=== PATIENT | female | born 1950 | race Caucasian/White ===

== ENCOUNTER 2017-01-08 18:07 | Emergency (ER) | payer OTHER ==
[~2017-01-08] VITALS: Ht 160 cm; Wt 90.0 kg
[~2017-01-08 18:07] MED LIST: CYCL-36 PO; DICL75 PO; EFFE75CA PO; ENAL2.5 PO; HYDR2TAB PO; LOVA40TA PO; NORC10TA2 PO; PROT40TA PO
[2017-01-08 18:09] VITALS: BP 136/93; PULSE 98; RESP 18; TEMP 98.2; O2SAT 100
[2017-01-08] MEDS ORDERED: SODIUM CHLORIDE 0.9% FLUSH 10 ML FLUSH IVF PRN (19:30)
[2017-01-08] MEDS ORDERED: oxyCODONE/ACETAMINOPHEN 7.5 MG/325 MG TAB PO ONE (19:30)
--- NOTE | 2017-01-08 20:33 | RADRPT ---
EXAM DATE/TIME: 01/08/2017 19:44 [place] COMPARISON: No previous studies available for comparison. INDICATIONS : Pain without trauma. MEDICAL HISTORY : Osteoporosis. SURGICAL HISTORY : None. ENCOUNTER: Initial ACUITY: 1 day PAIN SCORE: 5/10 LOCATION: Left hip. FINDINGS: Examination of the left hip was performed with AP Pelvis. The primary and secondary trabecular patte rn of the femoral neck is intact. The hip joint is of normal width without significant sclerosis or bony hypertrophy. The acetabulum is grossly intact. CONCLUSION: Normal examination for a patient of this age. Oliverio Walls MD on January 08, 2017 at 20:30 Board Certified Radiologist. This report was verified electronically.
[2017-01-08] MEDS ORDERED: PERC7.5T13 PO (21:18)
--- NOTE | 2017-01-08 21:18 | PD ---
HPI Chief Complaint: Hip Injury Time Seen by Provider: 19:22 Travel History International Travel<30 days: No Contact w/Intl Traveler<30days: No Traveled to known affect area: No History of Present Illness HPI Pt is 67 and while ambulating this morning felt a sudden onset of pain in the region of the left hip with involvement of the L lumbasacral area and medial proximal thigh. no falls. ambulation severely painful for patient. pt reports hx osteoporosis and is worried about a fracture. she took lortab at home which helped only marginally. timing constant. onset sudden. pain is worse lying on affected side. PFSH Past Medical History Arthritis: Yes Asthma: No Blood Disorders: No Anxiety: No Depression: Yes (on rx) Heart Rhythm Problems: Yes (mvp) Cancer: No Cardiovascular Problems: No High Cholesterol: Yes Chemotherapy: No Chest Pain: No Congestive Heart Failure: No COPD: Yes Diabetes: No Endocrine: No GERD: Yes Genitourinary: No Immune Disorder: No Musculoskeletal: No Neurologic: No Reproductive: No Respiratory: Yes Radiation Therapy: No Sleep Apnea: No Thyroid Disease: No ?: Not Past Surgical History Appendectomy: Yes Cholecystectomy: Yes Hysterectomy: Yes Tonsillectomy: Yes Social History Alcohol Use: Yes (rare) Tobacco Use: No Substance Use: No Allergies-Medications (Allergen,Severity, Reaction): Coded Allergies: No Known Allergies (Verified , 11/30/15) Reported Meds & Prescriptions Reported Meds & Active Scripts Active Percocet (Oxycodone-Acetaminophen) 7.5-325 mg Tab 1 Tab PO HS PRN [place]rum [place] 10-325 mg (Hydrocodone-Acetaminophen 10-325 mg) 1 Tab 1 Tab PO Q8HR PRN Flexeril (Cyclobenzaprine HCl) 10 Mg Tab 5 Mg PO BID PRN Reported Hydromorphone Hcl (Hydromorphone HCl) 2 Mg Tab 2 Mg PO Q4H PRN Lovastatin 40 Mg Tab 80 Mg PO HS Protonix (Pantoprazole Sodium) 40 Mg Tabdr 40 Mg PO DAILY Enalapril Maleate 2.5 Mg Tab 2.5 Mg PO DAILY Effexor Xr (Venlafaxine HCl) 75 Mg Cap 75 Mg PO DAILY Diclofenac Sodium Dr (Diclofenac Sod) 75 Mg Tab 75 Mg PO BID Review of Systems General / Constitutional: No: Fever Eyes: No: Visual changes HENT: No: Headaches Cardiovascular: No: Chest Pain or Discomfort Respiratory: No: Shortness of Breath Neurologic: No: Weakness Physical Exam Narrative GENERAL: 67 yo F, pleasant mild distress 2/2 pain SKIN: Warm and dry. HEAD: Normocephalic. EYES: No scleral icterus. No injection or drainage. NECK: Supple, trachea midline. No JVD or lymphadenopathy. CARDIOVASCULAR: Regular rate and rhythm without murmurs, gallops, or rubs. RESPIRATORY: Breath sounds equal bilaterally. No accessory muscle use. GASTROINTESTINAL: Abdomen soft, non-tender, nondistended. MUSCULOSKELETAL: No cyanosis, or edema. minimal ttp overlying greater trochanter on the left side. no tenderness with axial load. pt is able to elevate the left and right leg off the bed. 2+ dp bilaterally. BACK: Nontender without obvious deformity. No CVA tenderness. Data Data Last Documented VS Vital Signs Date Time Temp Pulse Resp B/P (MAP) Pulse Ox O2 Delivery O2 Flow Rate FiO2 01/08/17 21:32 01/08/17 18:09 98.2 98 18 100 Vital Signs Date Time Temp Pulse Resp B/P (MAP) Pulse Ox O2 Delivery O2 Flow Rate FiO2 01/08/17 21:32 01/08/17 18:09 98.2 98 18 136/93 (107) 100 Orders Orders Hip, Uni(Ap&Lat) W Ap Pelvis (01/08/17 19:27) Sodium Chloride 0.9% Flush (Ns Flush) (01/08/17 19:30) Oxycodone-Acetamin 7.5-325 Mg (Percocet (01/08/17 19:30) Ed Discharge Order (01/08/17 21:18) MDM Medical Decision Making Medical Screen Exam Complete: Yes Emergency Medical Condition: Yes Differential Diagnosis trochanteric fracture pubic ramus fracture contusion arthritis Narrative Course no fracture on plain films. mineralization is good and i have low suspicion for occult injury. results discussed with patient who was very relieved to hear there was no fracture pt ready for discharge home Diagnosis Primary Impression: Acute hip pain Qualified Codes: M25.552 - Pain in left hip Referrals: Latrice Padgett MD call for appointment Med/Other Pt SpecificInfo: Prescription(s) given Scripts Oxycodone-Acetaminophen (Percocet) 7.5-325 mg Tab 1 TAB PO HS Y for PAIN SCALE 6 TO 10, #20 TAB 0 Refills Prov: Sorin Hendrickson MD 01/08/17 Disposition: 01 DISCHARGE HOME Condition: Stable Sorin Hendrickson MD Jan 08, 2017 21:18
== END 2017-01-08 21:32 | disposition home or self-care (01) ==
LOC: NEPD 18:07
DX: M25.552 Pain in left hip (principal); E78.00 Pure hypercholesterolemia, unspecified; J44.9 Chronic obstructive pulmonary disease, unspecified
CPT/HCPCS: 73502; 99283